=== PATIENT | female | born 1960 ===

== ENCOUNTER 2018-08-28 10:07 | Emergency (ER) | payer OTHER ==
[~2018-08-28] VITALS: Ht 165.1 cm; Wt 81.6 kg
[2018-08-28] MEDS ORDERED: ELIQUIS5 MG PO (11:13)
== END 2018-08-28 14:22 | disposition home or self-care (01) ==
LOC: ER 10:07
DX: I48.2 Chronic atrial fibrillation (principal); Z76.0 Encounter for issue of repeat prescription